=== PATIENT | male | born 1975 | race African-American/Black ===

== ENCOUNTER 2020-10-24 09:19 | Inpatient (IN) | payer OTHER ==
[~2020-10-24 09:19] MED LIST: ACCU-CHEK1 EACH MC; ASPIRIN81 MG PO; AUGMENTIN 875-1 EACH PO; CLINORIL 150 M150 MG PO; DEX4 GLUCOSE4 GM PO; EMU-LAC HYDRAT120 ML TOP; GLUCOMETER; GLUCOPHAGE500 MG PO; HUMALOG 10100 UNITS/ SC; LANCETS; LEVAQUIN750 MG PO; METFORMIN HCL500 MG PO; MUPIROCIN22 GM TOP; SULFAMETHOXAZO1 EACH PO; TEST STRIPS
[2020-10-24 10:11] LABS: HEMOGLOBIN 12.7 gm/dl (14.0-17.5); RED BLOOD COUNT 4.63 M/UL (4.20-5.50)
[2020-10-24 10:44] LABS: BUN/CREATININE RATIO 13 (0-10)
[2020-10-25 06:44] LABS: HEMOGLOBIN 12.5 gm/dl (14.0-17.5); RED BLOOD COUNT 4.52 M/UL (4.20-5.50)
[2020-10-25 06:46] LABS: WHITE BLOOD COUNT 4.1 K/UL (4.5-11.0)
[2020-10-25 07:09] LABS: BUN/CREATININE RATIO 22 (0-10)
[2020-10-26 04:15] LABS: HEMOGLOBIN 12.6 gm/dl (14.0-17.5); RED BLOOD COUNT 4.58 M/UL (4.20-5.50)
[2020-10-26 04:25] LABS: WHITE BLOOD COUNT 5.6 K/UL (4.5-11.0)
[2020-10-26 04:45] LABS: BUN/CREATININE RATIO 26 (0-10)
[2020-10-27 08:36] LABS: HEMOGLOBIN 11.8 gm/dl (14.0-17.5); RED BLOOD COUNT 4.39 M/UL (4.20-5.50); WHITE BLOOD COUNT 5.7 K/UL (4.5-11.0)
[2020-10-27 08:57] LABS: BUN/CREATININE RATIO 27 (0-10)
--- NOTE | 2020-10-27 12:33 | NUR ---
0810 DR PUENTES NOTIFIED OF PTS HR DECREASING DOWN TO 27, CARDIO CONSULT ORDERED 0840 DR PUENTES HERE TO SEE PT, ORDERS NOTED
--- NOTE | 2020-10-27 18:30 | NUR ---
LET RESOURCE NURSE KNOW THAT PTS IV INFILTRATED AND I TRIED TWICE WITHOUT SUCCESS, PT STATED THAT PREVIOUS IV WAS STARTED WITH US
--- NOTE | 2020-10-27 19:09 | NUR ---
NOTIFIED RESOURCE NURSE FOR [employer] BRAYDEN TO LET HER KNOW THAT 5130 STILL NEEDS AN IV
--- NOTE | 2020-10-28 04:39 | NUR ---
TELEMETRY NOTIFIED CLINICAL EVALUATOR OF PATIENT'S HISTORY OF BRADYCARDIA BELOW 35 BPM WELL A CONTINUATION OF THIS TONIGHT. CLINICAL EVALUATOR REFERRED TO PREVIOUS PROVIDER NOTIFICATIONS AND SAW DOCUENTATION OF PATIENT'S HISTORY AND THAT AN MD HAD BEEN NOTIFIED. NO S/SX OF PAIN, DISCOMFORT, OR DISTRESS NOTED TO PATIENT.
[2020-10-28 06:43] LABS: HEMOGLOBIN 11.6 gm/dl (14.0-17.5); RED BLOOD COUNT 4.28 M/UL (4.20-5.50); WHITE BLOOD COUNT 5.3 K/UL (4.5-11.0)
[2020-10-28 07:03] LABS: BUN/CREATININE RATIO 29 (0-10)
[2020-10-29 05:14] LABS: RED BLOOD COUNT 4.46 M/UL (4.20-5.50); WHITE BLOOD COUNT 6.3 K/UL (4.5-11.0)
[2020-10-29 05:34] LABS: BUN/CREATININE RATIO 35 (0-10)
[2020-10-31] MEDS ORDERED: METFORMIN HCL500 MG PO (12:18)
[2020-10-31] MEDS ORDERED: INSULIN AS100 UNIT/3 SQ ×2 (12:18→12:40)
[2020-10-31] MEDS ORDERED: PROVENTIL HFA6.7 GM INH (12:18)
[2020-10-31] MEDS ORDERED: BASAGLAR K100 UNIT/1 SQ (12:18)
[2020-10-31] MEDS ORDERED: LISINOPRIL10 MG PO (12:26)
[2020-10-31] MEDS ORDERED: PREDNISONE5 MG PO (12:26)
[2020-10-31] MEDS ORDERED: BACTRIM DS TAB1 EACH PO (12:31)
--- NOTE | 2020-10-31 17:38 | NUR ---
PT STATES HE HAS NO TRANSPORTAION HOME UNTIL TOMORROW 11-01-20. HE IS COVID + THEREFORE CANNOT USE [facility] [employer] OR [facility]. [employer], [place], NOTIFIED,
--- NOTE | 2020-10-31 19:03 | NUR ---
CALLED MRS FORTE AT HOME. INFORMED HER OF HH BEING SET UP. SHE STATED THAT SHE COULD NOT SEE TO DRIVE IN THE DARK AND WOULD COME BACK TO GET MR FORTE TOMORROW AROUND LUNCHTIME.
[2020-11-01] MEDS ORDERED: MUCINEX600 MG PO (11:43)
== END 2020-11-01 12:35 | disposition home or self-care (01) | DRG 871 ==
LOC: ER1 09:19 → M/S 11:30 → CDU 11:30 → M/S 10-25 15:59
PROVIDERS: Physician Assistant; ADMIT Internal Medicine
PROC: XW033E5 Introduction of Remdesivir Anti-infective into Peripheral Vein, Percutaneous Approach, New Technology Group 5 (ICD-10-PCS; principal; 2020-10-24)
PROC: XW13325 Transfusion of Convalescent Plasma (Nonautologous) into Peripheral Vein, Percutaneous Approach, New Technology Group 5 (ICD-10-PCS; 2020-10-24)
PROC: 8E0ZXY6 Isolation (ICD-10-PCS; 2020-10-24)
DX: A41.9 Sepsis, unspecified organism (principal); U07.1 COVID-19; J12.82 Pneumonia due to coronavirus disease 2019; J96.01 Acute respiratory failure with hypoxia; E87.1 Hypo-osmolality and hyponatremia; E11.65 Type 2 diabetes mellitus with hyperglycemia; I89.0 Lymphedema, not elsewhere classified; D64.9 Anemia, unspecified; R00.1 Bradycardia, unspecified; E11.621 Type 2 diabetes mellitus with foot ulcer; E66.9 Obesity, unspecified
CPT/HCPCS: 36415; 36600; 71045; 71275; 80048; 80053; 80202; 82550; 82553; 82803; 82962; 83036; 83605; 83735; 83874; 84484; 85025; 85027; 85379; 85730; 86140; 86900; 86901; 86927; 87040; 87070; 87077; 87186; 87205; 93005; 94640; 94664; 94760; 96365; 96366; 96367; 96368; 96375; 97161; 99285; J0456; J0696; J1100; J1650; J2185; J3370; J7030; J7050; J7070; Q9967; U0002

== ENCOUNTER 2020-12-25 09:33 | Emergency (ER) | payer OTHER ==
[~2020-12-25 09:33] MED LIST changes: +BACTRIM DS TAB1 EACH PO; +BASAGLAR K100 UNIT/1 SQ; +INSULIN AS100 UNIT/3 SQ; +LISINOPRIL10 MG PO; +MUCINEX600 MG PO; +PREDNISONE5 MG PO; +PROVENTIL HFA6.7 GM INH
== END 2020-12-25 13:04 | disposition home or self-care (01) ==
LOC: ER1 09:33
DX: B34.9 Viral infection, unspecified (principal); Z20.822 Contact with and (suspected) exposure to COVID-19; R51.9 Headache, unspecified; E11.9 Type 2 diabetes mellitus without complications; F17.210 Nicotine dependence, cigarettes, uncomplicated; Z79.4 Long term (current) use of insulin
CPT/HCPCS: 0240U; 82962; 99284

== ENCOUNTER 2021-10-22 15:34 | Inpatient (IN) | payer MEDICAID ==
[~2021-10-22] VITALS: Ht 167.6 cm; Wt 138.1 kg
[2021-10-22 17:33] LABS: HEMOGLOBIN 13.1 gm/dl (14.0-17.5); RED BLOOD COUNT 4.72 M/UL (4.20-5.50); WHITE BLOOD COUNT 13.2 K/UL (4.5-11.0)
[2021-10-22 18:04] LABS: BUN/CREATININE RATIO 19 (0-10)
[2021-10-23 02:32] LABS: HEMOGLOBIN 11.2 gm/dl (14.0-17.5)
[2021-10-23 02:36] LABS: RED BLOOD COUNT 4.08 M/UL (4.20-5.50); WHITE BLOOD COUNT 21.3 K/UL (4.5-11.0)
[2021-10-23 02:51] LABS: BUN/CREATININE RATIO 16 (0-10)
[2021-10-24 05:09] LABS: HEMOGLOBIN 11.3 gm/dl (14.0-17.5); RED BLOOD COUNT 4.1 M/UL (4.20-5.50); WHITE BLOOD COUNT 23.9 K/UL (4.5-11.0)
[2021-10-24 05:49] LABS: BUN/CREATININE RATIO 13 (0-10)
--- NOTE | 2021-10-24 10:39 | NUR ---
Patient received at approximately 1030. Vitals are stable and he is resting in bed comfortably. Both IV's are patent, and normal saline is started at 100mL/hr.
[2021-10-25 05:25] LABS: HEMOGLOBIN 10.5 gm/dl (14.0-17.5); RED BLOOD COUNT 3.75 M/UL (4.20-5.50); WHITE BLOOD COUNT 16.5 K/UL (4.5-11.0)
[2021-10-25 05:59] LABS: BUN/CREATININE RATIO 14 (0-10)
[2021-10-26 06:36] LABS: BUN/CREATININE RATIO 16 (0-10)
[2021-10-26] MEDS ORDERED: AUGMENTIN 875-1 EACH PO (15:42)
[2021-10-26] MEDS ORDERED: GLUCOPHAGE XR500 M1 PO (15:44)
[2021-10-27 10:38] LABS: HEMOGLOBIN 10.6 gm/dl (14.0-17.5); RED BLOOD COUNT 3.93 M/UL (4.20-5.50)
[2021-10-27 10:42] LABS: WHITE BLOOD COUNT 4.1 K/UL (4.5-11.0)
[2021-10-27 11:06] LABS: BUN/CREATININE RATIO 15 (0-10)
== END 2021-10-27 14:37 | disposition home or self-care (01) | DRG 872 ==
LOC: ER1 15:34 → CDU 20:20 → PROG CARE 20:20 → M/S 23:10
PROVIDERS: Internal Medicine; Physician Assistant; ADMIT Emergency Medicine
PROC: 3E0234Z Introduction of Serum, Toxoid and Vaccine into Muscle, Percutaneous Approach (ICD-10-PCS; principal; 2021-10-22)
DX: A41.9 Sepsis, unspecified organism (principal); L03.116 Cellulitis of left lower limb; E87.2 Acidosis; Z68.42 Body mass index [BMI] 45.0-49.9, adult; R65.20 Severe sepsis without septic shock; Z20.822 Contact with and (suspected) exposure to COVID-19; I87.8 Other specified disorders of veins; I89.0 Lymphedema, not elsewhere classified; I10 Essential (primary) hypertension; E66.01 Morbid (severe) obesity due to excess calories; Z82.49 Family history of ischemic heart disease and other diseases of the circulatory system; Z83.3 Family history of diabetes mellitus; Z79.82 Long term (current) use of aspirin; Z79.84 Long term (current) use of oral hypoglycemic drugs; Z79.899 Other long term (current) drug therapy; Z23 Encounter for immunization; Z91.19 Patient's noncompliance with other medical treatment and regimen
CPT/HCPCS: 36415; 71045; 73552; 73590; 73701; 80048; 80053; 80202; 82962; 83036; 83605; 83735; 83880; 84484; 85025; 85027; 85652; 86140; 87040; 87086; 93005; 93970; 96374; 96375; 99284; J1170; J1650; J2185; J2405; J2543; J3370; J7030; J7070; Q9967; U0002

== ENCOUNTER 2022-04-21 12:53 | Inpatient (IN) | payer OTHER ==
[~2022-04-21] VITALS: Ht 170.2 cm; Wt 134.7 kg
[~2022-04-21 12:53] MED LIST changes: +GLUCOPHAGE XR500 M1 PO
[2022-04-21 14:00] LABS: HEMOGLOBIN 12.8 gm/dl (14.0-17.5); RED BLOOD COUNT 4.58 M/UL (4.20-5.50); WHITE BLOOD COUNT 10.2 K/UL (4.5-11.0)
[2022-04-21 14:26] LABS: BUN/CREATININE RATIO 15 (0-10)
[2022-04-22 07:09] LABS: HEMOGLOBIN 11.7 gm/dl (14.0-17.5); RED BLOOD COUNT 4.28 M/UL (4.20-5.50); WHITE BLOOD COUNT 16.2 K/UL (4.5-11.0)
[2022-04-22 07:51] LABS: BUN/CREATININE RATIO 16 (0-10)
[2022-04-22] MEDS ORDERED: METFORMIN HCL500 MG PO (10:32)
[2022-04-23 05:51] LABS: HEMOGLOBIN 10.8 gm/dl (14.0-17.5); WHITE BLOOD COUNT 14.6 K/UL (4.5-11.0)
[2022-04-23 05:53] LABS: RED BLOOD COUNT 3.85 M/UL (4.20-5.50)
[2022-04-23 06:21] LABS: BUN/CREATININE RATIO 15 (0-10)
[2022-04-24 07:11] LABS: HEMOGLOBIN 10.6 gm/dl (14.0-17.5); RED BLOOD COUNT 3.84 M/UL (4.20-5.50)
[2022-04-24 07:12] LABS: WHITE BLOOD COUNT 8.4 K/UL (4.5-11.0)
[2022-04-24 07:35] LABS: BUN/CREATININE RATIO 17 (0-10)
[2022-04-25 06:01] LABS: HEMOGLOBIN 10.6 gm/dl (14.0-17.5); RED BLOOD COUNT 3.81 M/UL (4.20-5.50)
[2022-04-25 06:12] LABS: WHITE BLOOD COUNT 5.8 K/UL (4.5-11.0)
[2022-04-25 06:13] LABS: BUN/CREATININE RATIO 19 (0-10)
[2022-04-26 07:17] LABS: HEMOGLOBIN 10.9 gm/dl (14.0-17.5); RED BLOOD COUNT 3.97 M/UL (4.20-5.50); WHITE BLOOD COUNT 5.6 K/UL (4.5-11.0)
[2022-04-26 15:13] LABS: BUN/CREATININE RATIO 20 (0-10)
[2022-04-27 05:57] LABS: BUN/CREATININE RATIO 18 (0-10)
[2022-04-27 07:10] LABS: HEMOGLOBIN 10.8 gm/dl (14.0-17.5); RED BLOOD COUNT 4.1 M/UL (4.20-5.50); WHITE BLOOD COUNT 6.9 K/UL (4.5-11.0)
[2022-04-27] MEDS ORDERED: METFORMIN HCL500 MG PO (12:49)
[2022-04-27] MEDS ORDERED: LOSARTAN POTASS50 MG PO (12:49)
[2022-04-27] MEDS ORDERED: BACTRIM DS TAB1 EACH PO (12:49)
[2022-04-27] MEDS ORDERED: CEPHALEXIN500 M1 PO (12:49)
[2022-04-27] MEDS ORDERED: JARDIANCE25 MG PO (12:49)
== END 2022-04-27 17:25 | disposition home or self-care (01) | DRG 871 ==
LOC: ER1 12:53 → CDU 16:06 → PROG CARE 16:06
PROVIDERS: Emergency Medicine; Physician Assistant; ADMIT Internal Medicine
PROC: 3E03329 Introduction of Other Anti-infective into Peripheral Vein, Percutaneous Approach (ICD-10-PCS; principal; 2022-04-21)
PROC: B24BZZZ Ultrasonography of Heart with Aorta (ICD-10-PCS; 2022-04-22)
DX: A41.9 Sepsis, unspecified organism (principal); J96.01 Acute respiratory failure with hypoxia; L03.116 Cellulitis of left lower limb; E66.2 Morbid (severe) obesity with alveolar hypoventilation; J98.11 Atelectasis; E87.2 Acidosis; Z68.42 Body mass index [BMI] 45.0-49.9, adult; K74.60 Unspecified cirrhosis of liver; R65.20 Severe sepsis without septic shock; I89.0 Lymphedema, not elsewhere classified; E11.9 Type 2 diabetes mellitus without complications; I10 Essential (primary) hypertension; E78.5 Hyperlipidemia, unspecified; R00.1 Bradycardia, unspecified; Z83.3 Family history of diabetes mellitus; Z79.84 Long term (current) use of oral hypoglycemic drugs; Z79.899 Other long term (current) drug therapy
CPT/HCPCS: ECHO; 36415; 36600; 70450; 71045; 73700; 76705; 80048; 80053; 80202; 81001; 82140; 82803; 82962; 83605; 83735; 84100; 84439; 84443; 85025; 85027; 85730; 86140; 87040; 87086; 93306; 94760; 96374; 96375; 97161; 99285; C1751; J0690; J1650; J2185; J2270; J3370; J7030; J7050; J7070

== ENCOUNTER 2022-06-21 13:16 | Inpatient (IN) | payer OTHER ==
[~2022-06-21] VITALS: Ht 167.6 cm; Wt 131.1 kg
[~2022-06-21 13:16] MED LIST changes: +CEPHALEXIN500 M1 PO; +JARDIANCE25 MG PO; +LOSARTAN POTASS50 MG PO
[2022-06-21 13:42] LABS: HEMOGLOBIN 11.7 gm/dl (14.0-17.5); RED BLOOD COUNT 4.31 M/UL (4.20-5.50); WHITE BLOOD COUNT 2.7 K/UL (4.5-11.0)
[2022-06-21 14:06] LABS: BUN/CREATININE RATIO 16 (0-10)
[2022-06-21] MEDS ORDERED: METFORMIN HCL1000 MG PO (15:05)
[2022-06-21] MEDS ORDERED: LOSARTAN POTASS50 MG PO (15:05)
--- NOTE | 2022-06-21 16:50 | NUR ---
NOTIFIED DR WILLS OF PTS ARRIVAL AND CONSULT.
--- NOTE | 2022-06-22 11:12 | NUR ---
ATTEMPTED TO PLACE A MIDLINE PER DR. VOGT VERBAL ORDER, ATTEMPTED 20G X 10CM MIDLINE POWERGLIDE TO RIGHT BRACHIAL VEIN, ACCESSED VEIN UNABLE TO THREAD CATHETER RN HEATHER NOTIFIED UNABLE TO ACCESS MD VOGT ON FLOOR AND AWARE
[2022-06-22 15:56] LABS: HEMOGLOBIN 12.9 gm/dl (14.0-17.5); RED BLOOD COUNT 4.65 M/UL (4.20-5.50)
[2022-06-22 16:15] LABS: WHITE BLOOD COUNT 13.9 K/UL (4.5-11.0)
[2022-06-22 16:56] LABS: BUN/CREATININE RATIO 23 (0-10)
[2022-06-23 05:03] LABS: HEMOGLOBIN 12.3 gm/dl (14.0-17.5); RED BLOOD COUNT 4.51 M/UL (4.20-5.50); WHITE BLOOD COUNT 15.5 K/UL (4.5-11.0)
[2022-06-23 05:43] LABS: BUN/CREATININE RATIO 25 (0-10)
[2022-06-24 05:04] LABS: HEMOGLOBIN 11.5 gm/dl (14.0-17.5); RED BLOOD COUNT 4.17 M/UL (4.20-5.50); WHITE BLOOD COUNT 17.1 K/UL (4.5-11.0)
[2022-06-24 05:14] LABS: BUN/CREATININE RATIO 25 (0-10)
[2022-06-25 02:39] LABS: HEMOGLOBIN 10.3 gm/dl (14.0-17.5); RED BLOOD COUNT 3.84 M/UL (4.20-5.50); WHITE BLOOD COUNT 20.7 K/UL (4.5-11.0)
[2022-06-25 03:07] LABS: BUN/CREATININE RATIO 28 (0-10)
--- NOTE | 2022-06-25 10:43 | NUR ---
WOUND DRESSING REMOVED. DR WILLS ASSESSED THE LEGS. MADE HIM AWARE OF PTS FEET APPEARING TRENCH FOOT. DR WILLS ORDERS TO CONTINUE THE DRESSINGS ORDERED, AND IF THE PATIENT CAN TOLERATE IT APPLY THE SCUDS OVER TOP OF DRESSINGS. WOUND CARE DONE PT TOLERATED WELL, GAVE PRN MORPHINE TO HELP WITH PAIN. APPLIED SCUDS.
[2022-06-26 01:49] LABS: HEMOGLOBIN 10.3 gm/dl (14.0-17.5); RED BLOOD COUNT 3.83 M/UL (4.20-5.50)
[2022-06-26 02:11] LABS: BUN/CREATININE RATIO 26 (0-10)
[2022-06-27 07:09] LABS: HEMOGLOBIN 10.2 gm/dl (14.0-17.5); RED BLOOD COUNT 3.84 M/UL (4.20-5.50)
[2022-06-27 07:34] LABS: BUN/CREATININE RATIO 22 (0-10)
[2022-06-28 01:55] LABS: HEMOGLOBIN 10.6 gm/dl (14.0-17.5); RED BLOOD COUNT 3.88 M/UL (4.20-5.50); WHITE BLOOD COUNT 26.9 K/UL (4.5-11.0)
[2022-06-28 02:09] LABS: BUN/CREATININE RATIO 20 (0-10)
[2022-06-29 04:45] LABS: HEMOGLOBIN 10.4 gm/dl (14.0-17.5); RED BLOOD COUNT 3.75 M/UL (4.20-5.50)
[2022-06-29 05:24] LABS: BUN/CREATININE RATIO 17 (0-10)
[2022-06-30 04:24] LABS: HEMOGLOBIN 9.9 gm/dl (14.0-17.5); RED BLOOD COUNT 3.67 M/UL (4.20-5.50); WHITE BLOOD COUNT 27.1 K/UL (4.5-11.0)
[2022-06-30 04:44] LABS: BUN/CREATININE RATIO 21 (0-10)
[2022-07-01 04:27] LABS: HEMOGLOBIN 10.1 gm/dl (14.0-17.5); RED BLOOD COUNT 3.71 M/UL (4.20-5.50)
[2022-07-01 04:30] LABS: WHITE BLOOD COUNT 19.7 K/UL (4.5-11.0)
[2022-07-01 05:02] LABS: BUN/CREATININE RATIO 21 (0-10)
[2022-07-02 02:55] LABS: HEMOGLOBIN 9.7 gm/dl (14.0-17.5); RED BLOOD COUNT 3.65 M/UL (4.20-5.50)
[2022-07-02 03:02] LABS: WHITE BLOOD COUNT 11.8 K/UL (4.5-11.0)
[2022-07-02 03:24] LABS: BUN/CREATININE RATIO 19 (0-10)
[2022-07-03 03:12] LABS: HEMOGLOBIN 9.8 gm/dl (14.0-17.5); RED BLOOD COUNT 3.66 M/UL (4.20-5.50); WHITE BLOOD COUNT 8.9 K/UL (4.5-11.0)
[2022-07-03 03:42] LABS: BUN/CREATININE RATIO 15 (0-10)
[2022-07-04 02:46] LABS: HEMOGLOBIN 9.9 gm/dl (14.0-17.5); RED BLOOD COUNT 3.66 M/UL (4.20-5.50)
[2022-07-04 03:05] LABS: BUN/CREATININE RATIO 17 (0-10)
[2022-07-05 03:09] LABS: HEMOGLOBIN 10.9 gm/dl (14.0-17.5); RED BLOOD COUNT 3.95 M/UL (4.20-5.50); WHITE BLOOD COUNT 6.1 K/UL (4.5-11.0)
[2022-07-05 03:57] LABS: BUN/CREATININE RATIO 16 (0-10)
[2022-07-06 03:22] LABS: HEMOGLOBIN 11.5 gm/dl (14.0-17.5); RED BLOOD COUNT 4.22 M/UL (4.20-5.50); WHITE BLOOD COUNT 5.4 K/UL (4.5-11.0)
[2022-07-06 03:41] LABS: BUN/CREATININE RATIO 17 (0-10)
[2022-07-07 04:41] LABS: HEMOGLOBIN 11.7 gm/dl (14.0-17.5); RED BLOOD COUNT 4.32 M/UL (4.20-5.50); WHITE BLOOD COUNT 5.1 K/UL (4.5-11.0)
[2022-07-07 05:14] LABS: BUN/CREATININE RATIO 18 (0-10)
[2022-07-07] MEDS ORDERED: LOPRESSOR 25 MG25 MG PO (12:51)
[2022-07-07] MEDS ORDERED: HYDROCODON-ACE1 EAC2 PO (12:51)
== END 2022-07-07 17:09 | disposition home or self-care (01) | DRG 871 ==
LOC: ER1 13:16 → CCU 15:01 → CDU 15:01 → M/S 15:01 → PROG CARE 16:43 → CCU 06-22 09:03 → PROG CARE 06-24 14:29 → M/S 06-29 22:23
PROVIDERS: Internal Medicine; Physician Assistant; Physician Assistant Medical; ADMIT Internal Medicine Infectious Disease
PROC: 02HV33Z Insertion of Infusion Device into Superior Vena Cava, Percutaneous Approach (ICD-10-PCS; 2022-06-22)
PROC: B548ZZA Ultrasonography of Superior Vena Cava, Guidance (ICD-10-PCS; 2022-06-22)
PROC: 3E043XZ Introduction of Vasopressor into Central Vein, Percutaneous Approach (ICD-10-PCS; principal; 2022-06-24)
PROC: 3E03329 Introduction of Other Anti-infective into Peripheral Vein, Percutaneous Approach (ICD-10-PCS; 2022-06-24)
PROC: 5A09357 Assistance with Respiratory Ventilation, Less than 24 Consecutive Hours, Continuous Positive Airway Pressure (ICD-10-PCS; 2022-06-24)
PROC: 5A09357 Assistance with Respiratory Ventilation, Less than 24 Consecutive Hours, Continuous Positive Airway Pressure (ICD-10-PCS; 2022-06-25)
PROC: 5A09357 Assistance with Respiratory Ventilation, Less than 24 Consecutive Hours, Continuous Positive Airway Pressure (ICD-10-PCS; 2022-06-27)
DX: A40.1 Sepsis due to streptococcus, group B (principal); J96.91 Respiratory failure, unspecified with hypoxia; R65.21 Severe sepsis with septic shock; Z20.822 Contact with and (suspected) exposure to COVID-19; J96.92 Respiratory failure, unspecified with hypercapnia; L03.116 Cellulitis of left lower limb; E66.2 Morbid (severe) obesity with alveolar hypoventilation; Z68.42 Body mass index [BMI] 45.0-49.9, adult; E11.52 Type 2 diabetes mellitus with diabetic peripheral angiopathy with gangrene; E87.1 Hypo-osmolality and hyponatremia; J44.9 Chronic obstructive pulmonary disease, unspecified; I49.3 Ventricular premature depolarization; I87.8 Other specified disorders of veins; I89.0 Lymphedema, not elsewhere classified; F17.210 Nicotine dependence, cigarettes, uncomplicated; Z79.4 Long term (current) use of insulin; Z83.3 Family history of diabetes mellitus; Z82.49 Family history of ischemic heart disease and other diseases of the circulatory system; Z99.81 Dependence on supplemental oxygen
CPT/HCPCS: 0240U; 36415; 36600; 71045; 73700; 73720; 80048; 80053; 80202; 81001; 82550; 82553; 82803; 82962; 83540; 83550; 83605; 83735; 83880; 84100; 84484; 85025; 85027; 85652; 86140; 87040; 87070; 87077; 87086; 87186; 87205; 93005; 94640; 94660; 94664; 94760; 96374; 96375; 97116-GP-CQ; 97162; 97165; 97530-GP-CQ; 99285; A9577; C9113; J0878; J1335; J1650; J2185; J2270; J2370; J2543; J3370; J3475; J7030; J7070

== ENCOUNTER → 2022-07-13 | Outpatient (CLI) | payer SELFPAY ==
[~2022-07-13] MED LIST changes: +HYDROCODON-ACE1 EAC2 PO; +LOPRESSOR 25 MG25 MG PO; +METFORMIN HCL1000 MG PO
== END | disposition home or self-care (01) ==
LOC: WCC 07:15
DX: E11.621 Type 2 diabetes mellitus with foot ulcer (principal); L97.422 Non-pressure chronic ulcer of left heel and midfoot with fat layer exposed; L97.822 Non-pressure chronic ulcer of other part of left lower leg with fat layer exposed; I87.2 Venous insufficiency (chronic) (peripheral); I89.0 Lymphedema, not elsewhere classified; R60.0 Localized edema; G47.30 Sleep apnea, unspecified; E66.01 Morbid (severe) obesity due to excess calories; Z68.41 Body mass index [BMI] 40.0-44.9, adult